=== PATIENT | female | born 1985 | race Caucasian/White ===

== ENCOUNTER → 2017-10-19 | Day surgery (SDC) | payer OTHER ==
[~2017-10-19] VITALS: Ht 165.1 cm; Wt 63.0 kg
[~2017-10-19] MED LIST: PRENATAL TABLE1 EAC1 PO
--- NOTE | 2017-10-19 10:05 | Operative Report ---
Operative/Inv Procedure Report Surgery Date: 10/19/17 Name of Procedure: Suction dilation and curettage Pre-Operative Diagnosis: Missed Post-Operative Diagnosis: Same Estimated Blood Loss: 50ml to 100ml Surgeon/Ginger Farmer: Ainsley Jasso MD Anesthesia: moderate sedation IV Fluids: Lactated Ringer's Urine Output: 200 mL clear urine at the beginning of the procedure Specimens: POC Complications: None Condition: Stable Operative Indication: 31-year-old, 9 weeks intrauterine , ultrasound showed no heartbeat. Operative/Procedure Note Note: The patient was taken to the operating room where moderate sedation was obtained without difficulty. Patient was then examined under anesthesia and found to have a 8 weeks anteverted uterus with normal adnexa. Laminaria was removed. She was then placed in the dorsal lithotomy position and prepared and draped in the usual sterile fashion. A bivalve speculum was then placed in the patient's vagina and the anterior lip of the cervix grasped with the single-toothed tenaculum. An 8 mm suction curet advanced gently to the uterine fundus. The suction device was then activated and the curet rotated to clear the uterus of products of conception. Sharp curette was then performed until a gritty texture was noted. The suction curet was then reintroduced to clear the uterus of all remaining products of conception. There was minimal bleeding noted and the tenaculum removed with good hemostasis noted. Patient tolerated the procedure well. Laps, instruments counts were correct. The patient was taken to the recovery room in stable condition. CC: Ainsley Jasso MD
== END ==
LOC: STS 03:48
DX: O02.1 Missed abortion (principal)
CPT/HCPCS: 88305; J2210; J2250